=== PATIENT | female | born 2000 | race Caucasian/White ===

== ENCOUNTER 2021-06-22 11:30 | Emergency (ER) | payer OTHER, SELFPAY ==
[2021-06-22 11:55] VITALS: BP 109/67; PULSE 63; RESP 12; TEMP 36.8; O2SAT 100
--- NOTE | 2021-06-22 12:53 | ED.SKABFB ---
HPI - Skin/Abscess/Foreign Bdy General Chief complaint: Skin/Abscess/Foreign Body Stated complaint: pos insect bite Source: patient and RN notes reviewed Mode of arrival: ambulatory History of Present Illness HPI narrative: This is a 21-year-old female that presented to urgent care with complaints of a rash to her left thigh. According to patient approximately 2 days ago she felt a sting to that left thigh erythema in edema presented to the site. Patient did use [id number] topical Benadryl to relieve her symptoms with no relief she is here today for treatment. She will be treated for cellulitis of that area. The patient denies SOB, CP, palpitation, extremity numbness, lightheadedness, dizziness, constipation, diarrhea, chills, or fever. She does deny any sites of ticks MD complaint: rash Related Data Home Medications Medication Instructions Recorded Confirmed levonorgestrel 20 mcg/24 hours (6 1 insert INTRAUTERINE ONCE 06/15/21 06/22/21 yrs) 52 mg intrauterine device Allergies Allergy/AdvReac Type Severity Reaction Status Date / Time No Known Allergies Allergy Verified 06/22/21 12:00 Review of Systems Review of Systems: Narrative: A 14 organ system Review of Systems was performed and pertinent positives included in the HPI, otherwise remaining ROS is negative. All systems reviewed & are unremarkable except as noted in HPI and below PMFSH Past Medical History Medical History Acid reflux Anemia Anxiety Depression Surgical History Surgical History [place] teeth removed Family History Family History Mother Hypertension Grandparent Cerebrovascular accident Other Diabetes mellitus Social History Social History Smoking status: Never smoker Second hand tobacco smoke exposure: No Alcohol intake: current Drinks per week: 2 Alcohol use details: has 1-2 beer/wine per week Exam Narrative: Exam Narrative: GENERAL: This is a well-nourished, well-developed patient, in no apparent distress. HEAD: normocephalic, atraumatic. EYES: PERRL. Sclera clear/white. Vision is grossly intact. EARS: External ears normal, auditory canals clear and without drainage, TMs normal without perforation. Hearing grossly intact. NOSE: External nose normal with no obvious nasal discharge, nares without redness, no rhinorrhea. THROAT: Mucous membranes moist, posterior pharynx clear. NECK: Neck supple, non-tender without lymphadenopathy, masses or thyromegaly. CARDIOVASCULAR: Regular rate and rhythm without murmurs, gallops, or rubs. RESPIRATORY: Clear to auscultation. Breath sounds equal bilaterally. No wheezes, rales, or rhonchi. GASTROINTESTINAL: Abdomen soft, non-tender, nondistended. Bowel sounds are active. No hepato-splenomegaly, or palpable masses. No guarding. SKIN: warm, intact with no suspicious lesions or rash, good texture and turgor. NEURO: awake, alert, and oriented to person, place and time. There were no obvious focal neurologic abnormalities. Steady gait EXTREMITIES: Normal range of motion. No edema. No calf tenderness. Negative Homans sign bilaterally. BACK: Nontender without deformity or crepitance. No flank tenderness. Course Course Emergency Course: Patient treated for cellulitis given doxycycline Vital Signs Vital signs: Vital Signs Temperature 98.2 F 06/22/21 11:55 Pulse Rate 63 06/22/21 11:55 Respiratory Rate 12 06/22/21 11:55 Blood Pressure 109/67 06/22/21 11:55 Pulse Oximetry 100 06/22/21 11:55 Temperature 98.2 F 06/22/21 11:55 Pulse Rate 63 06/22/21 11:55 Respiratory Rate 12 06/22/21 11:55 Blood Pressure 109/67 06/22/21 11:55 Pulse Oximetry 100 06/22/21 11:55 MDM - Skin/Abscess/Foreign Bdy Differential D
--- NOTE | 2021-06-22 13:03 | ED.SKABFB ---
HPI - Skin/Abscess/Foreign Bdy General Chief complaint: Skin/Abscess/Foreign Body Stated complaint: pos insect bite Source: patient and RN notes reviewed Mode of arrival: ambulatory History of Present Illness HPI narrative: This is a 21-year-old female that presented to urgent care with complaints of a rash to her left upper thigh status post insect bite. According to patient 2 days ago she experienced a insect bite she describes it as a sting and developed a reddened raised itchy area to that left thigh. She did use [id number] Benadryl for treatment with no relief. She will be treated for cellulitis. The patient denies SOB, CP, palpitation, extremity numbness, lightheadedness, dizziness, constipation, diarrhea, chills, or fever. Denies a tick bite MD complaint: rash Related Data Home Medications Medication Instructions Recorded Confirmed levonorgestrel 20 mcg/24 hours (6 1 insert INTRAUTERINE ONCE 06/15/21 06/22/21 yrs) 52 mg intrauterine device Allergies Allergy/AdvReac Type Severity Reaction Status Date / Time No Known Allergies Allergy Verified 06/22/21 12:00 Review of Systems Review of Systems: Narrative: A 14 organ system Review of Systems was performed and pertinent positives included in the HPI, otherwise remaining ROS is negative. All systems reviewed & are unremarkable except as noted in HPI and below PMFSH Past Medical History Medical History Acid reflux Anemia Anxiety Depression Surgical History Surgical History [place] teeth removed Family History Family History Mother Hypertension Grandparent Cerebrovascular accident Other Diabetes mellitus Social History Social History Smoking status: Never smoker Second hand tobacco smoke exposure: No Alcohol intake: current Drinks per week: 2 Alcohol use details: has 1-2 beer/wine per week Exam Narrative: Exam Narrative: GENERAL: This is a well-nourished, well-developed patient, in no apparent distress. HEAD: normocephalic, atraumatic. EYES: PERRL. Sclera clear/white. Vision is grossly intact. EARS: External ears normal, auditory canals clear and without drainage, TMs normal without perforation. Hearing grossly intact. NOSE: External nose normal with no obvious nasal discharge, nares without redness, no rhinorrhea. THROAT: Mucous membranes moist, posterior pharynx clear. NECK: Neck supple, non-tender without lymphadenopathy, masses or thyromegaly. CARDIOVASCULAR: Regular rate and rhythm without murmurs, gallops, or rubs. RESPIRATORY: Clear to auscultation. Breath sounds equal bilaterally. No wheezes, rales, or rhonchi. GASTROINTESTINAL: Abdomen soft, non-tender, nondistended. Bowel sounds are active. No hepato-splenomegaly, or palpable masses. No guarding. SKIN: warm, intact , good texture and turgor. Upper right thigh erythematous with edema approximately 4 cm long and wide NEURO: awake, alert, and oriented to person, place and time. There were no obvious focal neurologic abnormalities. Steady gait EXTREMITIES: Normal range of motion. No edema. No calf tenderness. Negative Homans sign bilaterally. BACK: Nontender without deformity or crepitance. No flank tenderness. Course Vital Signs Vital signs: Vital Signs Temperature 98.2 F 06/22/21 11:55 Pulse Rate 63 06/22/21 11:55 Respiratory Rate 12 06/22/21 11:55 Blood Pressure 109/67 06/22/21 11:55 Pulse Oximetry 100 06/22/21 11:55 Temperature 98.2 F 06/22/21 11:55 Pulse Rate 63 06/22/21 11:55 Respiratory Rate 12 06/22/21 11:55 Blood Pressure 109/67 06/22/21 11:55 Pulse Oximetry 100 06/22/21 11:55 Discharge Plan Discharge Clinical Impression: Cellulitis Qualifiers: Site of cellulitis: extrem
== END 2021-06-22 13:17 | disposition home or self-care (01) ==
PROVIDERS: Emergency Provider Nurse Practitioner; PCP Family Medicine
DX: L03.116 Cellulitis of left lower limb (principal); K21.9 Gastro-esophageal reflux disease without esophagitis
CPT/HCPCS: 99213; G0463